=== PATIENT | male | born 1975 | race Two or more races ===

== ENCOUNTER → 2017-07-21 | Outpatient (CLI) | payer OTHER | END | disposition home or self-care (01) | LOC: RAD 11:01 | DX: J98.4 Other disorders of lung (principal) ==

== ENCOUNTER → 2017-11-12 08:05 | Outpatient (CLI) | payer OTHER | END | disposition home or self-care (01) | LOC: LAB 08:05 | DX: A69.29 Other conditions associated with Lyme disease (principal) ==

== ENCOUNTER 2017-11-12 08:44 | Outpatient (CLI) | payer OTHER | END 2017-11-12 09:29 | disposition home or self-care (01) | LOC: SONOGRAMA 08:44 | DX: K76.89 Other specified diseases of liver (principal) ==

== ENCOUNTER 2022-02-12 09:56 | Outpatient (CLI) | payer OTHER | END 2022-02-12 15:47 | disposition home or self-care (01) | LOC: SONOGRAMA 09:56 | PROVIDERS: ATTEND Urology | DX: K70.0 Alcoholic fatty liver (principal); N20.0 Calculus of kidney ==